=== PATIENT | female | born 1960 | race Caucasian/White ===

== ENCOUNTER 2022-06-23 09:08 | Emergency (ER) | payer OTHER, BC, SELFPAY ==
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
[2022-06-23 09:20] VITALS: BP 141/94; PULSE 100; RESP 20; TEMP 36.8; O2SAT 96
[2022-06-23 09:26] VITALS: BP 141/94; PULSE 100; RESP 20; TEMP 36.8; O2SAT 96
== END 2022-06-23 10:06 | disposition home or self-care (01) ==
PROVIDERS: Emergency Provider Nurse Practitioner Family; PCP Hospitalist
DX: S16.1XXA Strain of muscle, fascia and tendon at neck level, initial encounter (principal); V49.40XA Driver injured in collision with unspecified motor vehicles in traffic accident, initial encounter; I10 Essential (primary) hypertension; K21.9 Gastro-esophageal reflux disease without esophagitis
CPT/HCPCS: 99213; G0463